=== PATIENT | female | born 1995 | race Caucasian/White ===

== ENCOUNTER 2017-09-22 19:33 | Inpatient (IN) | payer OTHER, SELFPAY ==
[2017-09-22 19:55] LABS: Bilirubin Negative (Negative); Blood, Urine Small (Negative); Clarity CLOUDY (Clear); Glucose, Urine (Dipstick) Negative (Negative); Leukocyte Moderate (Negative); Nitrite Negative (Negative); Protein, Urine (Dipstick) 30 mg/dL (Neg-Trace); Specific Gravity, Urine 1.022 (1.002-1.036)
[2017-09-22 19:57] LABS: Bacteria/HPF 1+ HPF (None Seen); Hyaline Casts/LPF 0-3 HYALINE CAST LPF (0-3 Hyaline); WBC/HPF 21-50 HPF (0-3)
[2017-09-22 19:58] LABS: Pregnancy Test - Urine (BHCG) Negative (Negative); Pregu Control Background? CLEAR/WHITE (CLR/WHITE); Pregu Control Bar Appear? YES (CONTROL BAR); Specific Gravity 1.022 (1.002-1.036)
[2017-09-22] MEDS ORDERED: Ondansetron HCl/PF 4 MG/2 ML Vial ONE (20:07)
[2017-09-22] MEDS ORDERED: Ketorolac Tromethamine 30 MG/ML VIAL ONE (20:07)
[2017-09-22 20:12] LABS: #Lymphocytes 2.4 thou/uL (1.20-3.40); #Monocytes 1.2 thou/uL (0.11-0.59); #Neutrophils 9.1 thou/uL (1.40-6.50); %Basophils 0.3 % (0.0-1.0); %Eosinophils 0.1 % (0.0-10.0); %Lymphocytes 18.6 % (21.0-51.0); %Monocytes 9.3 % (0.0-10.0); %Neutrophils 71.6 % (42.0-75.0); Hemoglobin 12.8 g/dL (12.0-16.0); Mean Corpuscular HGB CONC 34.8 g/dL (32.0-36.0); Mean Corpuscular Hemoglobin 32.3 pg (27.0-31.0); Mean Corpuscular Volume 92.9 fl (81.0-99.0); Mean Platelet Volume 6.3 fL (7.4-10.4); Platelet Count 251 thou/uL (130-400); RBC Distribution Width 10.3 % (11.5-14.5); Red Blood Cell (RBC) Count 3.97 mill/uL (4.20-5.40); White Blood Cell (WBC) Count 12.7 thou/uL (4.8-10.8)
[2017-09-22 20:33] LABS: Anion Gap 9 mmol/L (10-20); BUN (Urea Nitrogen) 11 mg/dL (7.0-18.7); Calc. Creatinine Clearance 0 mL/min (70-130); Calcium 9.5 mg/dL (7.8-10.44); Carbon Dioxide 28 mmol/L (22-29); Chloride 102 mmol/L (98-107); Estimated GFR-MDRD 90; Glucose 95 mg/dL (70-105); Potassium 3.7 mmol/L (3.5-5.1); Sodium 135 mmol/L (136-145)
--- NOTE | 2017-09-22 22:45 | PDOC.FPRHP ---
- History of Present Illness Chief Complaint: nausea, - History PMHx: PSHx: FHx: Social: - Vital signs BP: 118/68 HR: 89 RR: [14] Tmax: [98.2] Pox: [99]% on [RA] Wt: [77 kg] FMR H&P: Results - Labs Result Diagrams: 09/22/17 20:06 09/22/17 20:06 Lab results: WBC 12.7 thou/uL (4.8-10.8) H 09/22/17 20:06 Hgb 12.8 g/dL (12.0-16.0) 09/22/17 20:06 Hct 36.9 % (36.0-47.0) 09/22/17 20:06 MCV 92.9 fl (81.0-99.0) 09/22/17 20:06 Plt Count 251 thou/uL (130-400) 09/22/17 20:06 Neutrophils % 71.6 % (42.0-75.0) 09/22/17 20:06 Sodium 135 mmol/L (136-145) L 09/22/17 20:06 Potassium 3.7 mmol/L (3.5-5.1) 09/22/17 20:06 Chloride 102 mmol/L (98-107) 09/22/17 20:06 Carbon Dioxide 28 mmol/L (22-29) 09/22/17 20:06 BUN 11 mg/dL (7.0-18.7) 09/22/17 20:06 Creatinine 0.80 mg/dL (0.6-1.1) 09/22/17 20:06 Glucose 95 mg/dL (70-105) 09/22/17 20:06 Lactic Acid 0.8 mmol/L (0.5-2.2) 09/22/17 20:07 Calcium 9.5 mg/dL (7.8-10.44) 09/22/17 20:06 Urine Ketones Trace mg/dL (Negative) H 09/22/17 19:48 Urine Blood Small (Negative) H 09/22/17 19:48 Urine Nitrite Negative (Negative) 09/22/17 19:48 Ur Leukocyte Esterase Moderate (Negative) H 09/22/17 19:48 Urine RBC 7-10 HPF (0-3) H 09/22/17 19:48 Urine WBC 21-50 HPF (0-3) H 09/22/17 19:48 Ur Squamous Epith Cells 7-10 HPF (0-3) H 09/22/17 19:48 Urine Bacteria 1+ HPF (None Seen) H 09/22/17 19:48 FMR H&P: Upper Level - Plan Date/Time: 09/22/17 4844 I, [], have evaluated this patient and agree with findings/plan as outlined by wireless internet installer resident. Pertinent changes/additions are listed here.
--- NOTE | 2017-09-22 23:21 | PDOC.FPRHP ---
- History of Present Illness Chief Complaint: n/v, UTI symptoms History of Present Illness: This is very pleasant 22 yo F w/no significant PMH who presents to the ED tonight with 2-3 week hx of UTI symptoms--frequency, burning. Denies hx of previous UTIs, renal stones. 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 Reports she went to the [facility] yesterday and was diagnosed with a UTI and sent home with a course of macrobid. Today, she has been unable to tolerate PO even after taking zofran at home. She has taken 2 doses of the abx with no improvement. Reports fevers starting today Tmax 103, flank pain, feeling dehydrated. [place] and is afraid of worsening dehydration and symptomatic treatments given in the ER subsiding after she goes home. ED Course: In ED given 2 L NS, morphine, toradol, rocephin, zofran IV - Allergies/Adverse Reactions Allergies Allergy/AdvReac Type Severity Reaction Status Date / Time No Known Drug Allergies Allergy Verified 09/23/17 05:55 - Home Medications Comments: none - History PMHx: none PSHx: tubal ligation 1 mo ago FHx: none pertinent Social: Denies tobacco, drugs. Endorses social alcohol consumption. 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 - Review of Systems General: reports: fever/chills, weight/appetite/sleep changes, fatigue Eyes: denies: eye pain, vision changes ENT: denies: nasal congestion Respiratory: denies: cough, congestion Cardiovascular: denies: chest pain, palpitation Gastrointestinal: reports: nausea, vomiting Skin: denies: rashes, jaundice Musculoskeletal: reports: pain (b/l flank pain R>L) Neurological: denies: numbness, syncope Psychological: denies: anxiety, depression - Vital signs BP: [118/68] HR: [89] RR: [14] Tmax: [98.2] Pox: [99]% on [RA] Wt: [77 kg] - Physical Exam Constitutional: NAD, awake, alert and oriented -Constitutional: diaphoretic HEENT: normocephalic and atraumatic, PERRLA, EOMI, conjunctiva clear, MMM, oropharynx clear Neck: supple, no LAD, no thyromegaly Chest: no-tender to palpation Heart: RRR, normal S1/S2, no murmurs/rubs/gallops, no edema Lungs: CTAB, no respiratory distress, good air movement, no rales/rhonchi, no wheezing Abdomen: soft, non-tender -Abdomen: CVA tenderness R>L Musculoskeletal: normal structure, normal tone, ROM grossly normal Neurological: no focal deficit Skin: no rash/lesions, no jaundice Heme/Lymphatic: no unusual bruising or bleeding Psychiatric: normal mood and affect, good judgment and insight, intact recent and remote memory FMR H&P: Results - Labs Result Diagrams: 09/22/17 20:06 09/23/17 05:41 Lab results: WBC 12.7 thou/uL (4.8-10.8) H 09/22/17 20:06 Hgb 12.8 g/dL (12.0-16.0) 09/22/17 20:06 Hct 36.9 % (36.0-47.0) 09/22/17 20:06 MCV 92.9 fl (81.0-99.0) 09/22/17 20:06 Plt Count 251 thou/uL (130-400) 09/22/17 20:06 Neutrophils % 71.6 % (42.0-75.0) 09/22/17 20:06 Sodium 135 mmol/L (136-145) L 09/22/17 20:06 Potassium 3.7 mmol/L (3.5-5.1) 09/22/17 20:06 Chloride 102 mmol/L (98-107) 09/22/17 20:06 Carbon Dioxide 28 mmol/L (22-29) 09/22/17 20:06 BUN 11 mg/dL (7.0-18.7) 09/22/17 20:06 Creatinine 0.80 mg/dL (0.6-1.1) 09/22/17 20:06 Glucose 95 mg/dL (70-105) 09/22/17 20:06 Lactic Acid 0.8 mmol/L (0.5-2.2) 09/22/17 20:07 Calcium 9.5 mg/dL (7.8-10.44) 09/22/17 20:06 Urine Ketones Trace mg/dL (Negative) H 09/22/17 19:48 Urine Blood Small (Negative) H 09/22/17 19:48 Urine Nitrite Negative (Negative) 09/22/17 19:48 Ur Leukocyte Esterase Moderate (Negative) H 09/22/17 19:48 Urine RBC 7-10 HPF (0-3) H 09/22/17 19:48 Urine WBC 21-50 HPF (0-3) H 09/22/17 19:48 Ur Squamous Epith Cells 7-10 HPF (0-3) H 09/22/17 19:48 Urine Bacteria 1+ HPF (None Seen) H 09/22/17 19:48 Additional comment: Laboratory Tests 09/22/17 09/22/17 19:48 20:07 Lactic Acid 0.8 Urine Test Negative FMR H&P: A/P - Problem List (1) Pyelonephritis Current Visit: Yes Status: Acute Priority: High Code(s): N12 - TUBULO- INTERSTITIAL NEPHRITIS, NOT SPCF ACUTE OR CHRONIC (2) Gastrointestinal intolerance to foods Current Visit: Yes Status: Acute Code(s): K90.49 - MALABSORPTION DUE TO INTOLERANCE, NOT ELSEWHERE CLASSIFIED Assessment and Plan: Admission 2/2 to intolerance of PO - Plan Goals of pain control, nausea control for tonight. Given appropriate abx, will continue rocephin. If patient is still in severe pain, consider CT stone protocol in AM, less likely given b/l flank pain, little RBCs in UA, good renal function. Likely dispo 2 days for pain control, see if tolerating PO. FMR H&P: Upper Level - Plan Date/Time: 09/22/17 1930 I, [], have evaluated this patient and agree with findings/plan as outlined by internet sales director resident. Pertinent changes/additions are listed here. Attending Addendum - Attending Addendum Date/Time: 09/23/17 6298 I personally evaluated the patient and discussed the management with Dr. Coates. I agree with the History, Examination, Assessment and Plan documented above with any addition or exceptions noted below. The patient presents with a few days of dysuria and increasing flank pain. Patient worsened on macrobid. Now on IV antibiotics. Will get CT stone protocol to further evaluate flank pain. Patient will continue iv fluids and continue meds for pain control. She is complaining of a headache this morning. Toradol will be given.
[2017-09-22] MEDS ORDERED: Ondansetron ODT 4 MG TAB PO PRN (23:49)
[2017-09-22] MEDS ORDERED: Acetaminophen 325 MG TAB PO PRN (23:49)
[2017-09-22] MEDS ORDERED: Calcium Carbonate 500 MG ChewTAB PO PRN (23:49)
[2017-09-22] MEDS ORDERED: Ondansetron HCl/PF 4 MG/2 ML Vial IVP PRN (23:49)
[2017-09-22] MEDS ORDERED: Mag-Al 1200 mg/1200 mg/30 ML UDCUP PO PRN (23:49)
[2017-09-23] MEDS ORDERED: Morphine 5 MG/ML SYRINGE SLOW IVP PRN ×2 (00:01)
[2017-09-23 00:47] VITALS: BMI 26.6
[2017-09-23] MEDS: Sodium Chloride 0.9% 1,000 ML IV SCH ×2 (00:57→06:33)
[2017-09-23 06:10] LABS: Anion Gap 8 mmol/L (10-20); BUN (Urea Nitrogen) 9 mg/dL (7.0-18.7); Calc. Creatinine Clearance 158 mL/min (70-130); Calcium 8.5 mg/dL (7.8-10.44); Carbon Dioxide 25 mmol/L (22-29); Chloride 111 mmol/L (98-107); Estimated GFR-MDRD Greater than 90; Glucose 94 mg/dL (70-105); Sodium 140 mmol/L (136-145)
[2017-09-23] MEDS ORDERED: Ketorolac Tromethamine 30 MG/ML VIAL IVP SCH (08:30)
[2017-09-23 11:08] LABS: Pregnancy Test - Urine (BHCG) Negative (Negative); Pregu Control Background? CLEAR/WHITE (CLR/WHITE); Pregu Control Bar Appear? YES (CONTROL BAR); Specific Gravity 1.012 (1.002-1.036)
[2017-09-23] MEDS: Lactated Ringer's 1,000 ML IV SCH ×2 (11:59→19:30)
--- NOTE | 2017-09-23 13:17 | CT ---
CT ABDOMEN AND PELVIS: Date: 09/23/17 COMPARISON: None. HISTORY: Urinary tract infection, fever. TECHNIQUE: Serial axial CT imaging obtained at 5 mm intervals from lung bases through pubic symphysis without co ntrast. Coronal reformatted imaging obtained. FINDINGS: Imaged lung bases are unremarkable. Lack of contrast limits assessment of the viscera, bowel vasculat ure structures, and for lymphadenopathy. No free intraperitoneal air is noted. Liver, gallbladder, and spleen appear grossly unremarkable. Pancreas and bilateral adrenal glands are unremarkable. No left-sided hydronephrosis or nephrolithiasis. There is no evidence for obstructive uropathy on the left. There is no hydronephrosis or hydroureter on the right. No right nephrolithiasis. There is stranding of the fat within the hilar region on the right, mild. There is trace free fluid in the pelvic cul-de-sac on the right. There is a questionable cyst in the region of the right ovary measuring in the 2.0 cm range, not well characterized on this exam. Postoperative clips are noted in the adnexal regions. Appendix appears grossly unremarkable. No acute osseous abnormality. IMPRESSION: There is mild stranding of the fat in the right perinephric region near the renal pelvis. This could be on the basis of inflammatory/infectious change associated with pyelonephritis. There is no evidenc e for nephrolithiasis or obstructive uropathy. POS: SUMANTH
[2017-09-23] MEDS: Ketorolac Tromethamine 30 MG/ML VIAL IVP PRN (14:58)
[2017-09-23 19:08] LABS: Troponin I Less than 0.010 ng/mL (< 0.028)
[2017-09-23] MEDS ORDERED: cefTRIAXone\\ROCEPHIN 2 GM in Sodium Chloride 0.9% 100 ML IVPB SCH (21:00)
[2017-09-24] MEDS: Ketorolac Tromethamine 30 MG/ML VIAL IVP PRN (03:45)
[2017-09-24] MEDS: Lactated Ringer's 1,000 ML IV SCH (03:46)
[2017-09-24 06:59] LABS: #Eosinphils 0.3 thou/uL (0.0-0.7); #Lymphocytes 2.3 thou/uL (1.20-3.40); #Monocytes 0.7 thou/uL (0.11-0.59); #Neutrophils 4.1 thou/uL (1.40-6.50); %Basophils 0.4 % (0.0-1.0); %Eosinophils 3.4 % (0.0-10.0); %Lymphocytes 30.9 % (21.0-51.0); %Monocytes 9.5 % (0.0-10.0); %Neutrophils 55.7 % (42.0-75.0); Hemoglobin 10.7 g/dL (12.0-16.0); Mean Corpuscular HGB CONC 34.1 g/dL (32.0-36.0); Mean Corpuscular Hemoglobin 32.5 pg (27.0-31.0); Mean Corpuscular Volume 95.3 fl (81.0-99.0); Mean Platelet Volume 6.8 fL (7.4-10.4); Platelet Count 199 thou/uL (130-400); RBC Distribution Width 10.2 % (11.5-14.5); Red Blood Cell (RBC) Count 3.28 mill/uL (4.20-5.40); White Blood Cell (WBC) Count 7.4 thou/uL (4.8-10.8)
[2017-09-24 07:09] LABS: Anion Gap 8 mmol/L (10-20); BUN (Urea Nitrogen) 7 mg/dL (7.0-18.7); Calc. Creatinine Clearance 165 mL/min (70-130); Calcium 8.8 mg/dL (7.8-10.44); Carbon Dioxide 27 mmol/L (22-29); Chloride 108 mmol/L (98-107); Estimated GFR-MDRD Greater than 90; Glucose 91 mg/dL (70-105); Potassium 4.1 mmol/L (3.5-5.1); Sodium 139 mmol/L (136-145)
--- NOTE | 2017-09-24 07:52 | PDOC.FM ---
- Subjective Subjective: TIKA overnight, symptoms improved this AM. Able to tolerate PO yesterday w/o emesis. No new complaints. - Objective MAR Reviewed: Yes Vital Signs & Weight: Vital Signs (12 hours) Temp Pulse Resp BP Pulse Ox 09/24/17 03:52 98.1 F 77 18 109/60 100 09/23/17 23:46 98.1 F 70 18 99/55 L 100 Weight Weight 77.111 kg I&O: 09/23/17 09/24/17 09/25/17 06:59 06:59 06:59 Intake Total 1220 4922 Output Total 375 Balance 845 4922 Result Diagrams: 09/24/17 06:49 09/24/17 06:49 <Trae Whitehead - Last Filed: 09/24/17 07:49> - Objective Vital Signs & Weight: Vital Signs (12 hours) Temp Pulse Resp BP Pulse Ox 09/24/17 08:30 97.7 F 66 16 106/63 100 09/24/17 03:52 98.1 F 77 18 109/60 100 Weight Weight 77.111 kg I&O: 09/23/17 09/24/17 09/25/17 06:59 06:59 06:59 Intake Total 1220 4922 Output Total 375 Balance 845 4922 Result Diagrams: 09/24/17 06:49 09/24/17 06:49 <Cari Cordero - Last Filed: 09/24/17 14:16> Phys Exam - Physical Examination Constitutional: NAD HEENT: PERRLA, moist MMs Neck: no nodes Respiratory: no wheezing Cardiovascular: RRR, no significant murmur Gastrointestinal: soft, positive bowel sounds mild suprapubic tenderness improved from yesteday's exam Neurological: moves all 4 limbs Psychiatric: normal affect, A&O x 3 Skin: no rash <Trae Whitehead - Last Filed: 09/24/17 07:49> Dx/Plan (1) Pyelonephritis Code(s): N12 - TUBULO-INTERSTITIAL NEPHRITIS, NOT SPCF ACUTE OR CHRONIC Status: Acute Plan: Improvement in WBC and sxs on IV rocephin Cont. w/ transition to PO pending sensitivities (2) Gastrointestinal intolerance to foods Code(s): K90.49 - MALABSORPTION DUE TO INTOLERANCE, NOT ELSEWHERE CLASSIFIED Status: Acute Plan: Tolerating PO yesterday Cont. w/ PRN zofran <Trae Whitehead - Last Filed: 09/24/17 07:49> (1) Pyelonephritis Code(s): N12 - TUBULO-INTERSTITIAL NEPHRITIS, NOT SPCF ACUTE OR CHRONIC Status: Acute (2) Gastrointestinal intolerance to foods Code(s): K90.49 - MALABSORPTION DUE TO INTOLERANCE, NOT ELSEWHERE CLASSIFIED Status: Acute <Cari Cordero - Last Filed: 09/24/17 14:16> Attending Addendum - Attending Addendum Date/Time: 09/24/17 6493 I personally evaluated the patient and discussed the management with Dr. Whitehead. I agree with the History, Examination, Assessment and Plan documented above with any addition or exceptions noted below. The patient's pain has resolved. She is tolerating po intake. VQ scan negative , cardiac enzymes normal. Will d/c on po antibiotics. <Cari Cordero - Last Filed: 09/24/17 14:16>
[2017-09-24 08:36] VITALS: BP 106/63; TEMP 97.7
--- NOTE | 2017-09-24 10:51 | DIS-2 ---
DATE OF ADMISSION: 09/23/2017 DATE OF DISCHARGE: 09/24/2017 ADMITTING ATTENDING: Dr. Cordero. DISCHARGE ATTENDING: Dr. Cordero. RESIDENT: Trae Whitehead M.D. CONSULTATIONS: None. PROCEDURES: None. IMAGING: CT abdomen and pelvis stone protocol showing mild fat stranding in the right perinephric re gion and a 2.0 cm possible cyst in the right ovary. No evidence of nephrolithiasis. PRIMARY DIAGNOSES: 1. Acute right-sided pyelonephritis. 2. Intractable nausea and vomiting. SECONDARY DIAGNOSES: None. DISCHARGE MEDICATIONS: 1. Ciprofloxacin 500 mg p.o. q.12 hours for 7 days. 2. Zofran 4 mg sublingual tablets q.6 hours as needed for nausea, vomiting. DISCONTINUED MEDICATIONS: None. HISTORY OF PRESENT ILLNESS AND HOSPITAL COURSE: The patient is a 22-year-old female who initially pr esented to the ER for evaluation of intractable nausea and vomiting over a 24-hour period as well as dysuria over the past 2-3 weeks with frequency as well. No history of prior UTIs or renal stones. T he patient reportedly went to [facility] where she was prescribed Macrobid. She took 2 doses of this and did not have any improvement of her symptoms prompting ER visit at [facility] on 09/22/2017. The patient in the ER was given 2 liters normal saline, morphine, Toradol, and Zofr an which did not improve her p.o. tolerance. She was admitted for acute pyelonephritis in the settin g of CVA tenderness and UA indicative of infection as well as intractable nausea and vomiting. The p atient continued on IV Rocephin and urine culture is growing out less than 10,000 colony forming unit of urogenital ronen. Patient's white count improved from 12.7 with 71.6% neutrophils to 7.4 with 55 .7% neutrophils on day of discharge. The patient was afebrile throughout the entire hospital course. She as well did not meet any other criteria for possible sepsis. The patient tolerated past p.o. c hallenge and was transitioned over to p.o. ciprofloxacin. DISPOSITION: Stable. DISCHARGE INSTRUCTIONS: 1. Location: Home. 2. Follow up with primary care provider in 7 to 10 days. 3. Activity: As tolerated.
--- NOTE | 2017-09-27 16:44 | EKG ---
Test Reason : Blood Pressure : / mmHG Vent. Rate : 066 BPM Atrial Rate : 066 BPM P-R Int : 142 ms QRS Dur : 100 ms QT Int : 410 ms P-R-T Axes : 024 067 043 degrees QTc Int : 429 ms Normal sinus rhythm RSR' or QR pattern in V1 suggests right ventricular conduction delay Normal ECG Confirmed by TURNER GALVEZ ([id number]) on 09/27/2017 4:44:12 PM Referred By: KIESHA Confirmed By:TURNER GALVEZ
--- NOTE | 2017-10-14 12:09 | EKG ---
Test Reason : Blood Pressure : / mmHG Vent. Rate : 126 BPM Atrial Rate : 126 BPM P-R Int : 142 ms QRS Dur : 094 ms QT Int : 310 ms P-R-T Axes : 057 073 -32 degrees QTc Int : 448 ms Sinus tachycardia Abnormal ECG Confirmed by ARTEMIO TAFOYA, FATEMEH Bautista ([id number]), editor trade journal LATONIA SUGGS ([id number] on 10/14/2017 12:08:51 PM Referred By: Confirmed By:FATEMEH ULLOA MD
== END 2017-09-24 10:33 | disposition home or self-care (01) | DRG 690 ==
LOC: ERS 19:33 → 3SE 23:44
PROVIDERS: ADMIT Family Medicine; ATTEND Family Medicine
DX: N10 Acute pyelonephritis (principal); R11.2 Nausea with vomiting, unspecified; R51 Headache; Z98.51 Tubal ligation status
CPT/HCPCS: 36415; 74176; 80048; 81003; 81015; 81025; 82550; 83605; 84484; 85025; 85379; 87040; 87086; 93005; 93010; 96361; 96374; 96375; 96376; J2270; A4216; J0696; J1885; J2405; J7050

== ENCOUNTER 2022-04-22 11:37 | Outpatient (CLI) | payer OTHER | END 2022-04-22 11:38 | disposition home or self-care (01) | LOC: BICRAD 11:37 | PROVIDERS: ATTEND Family Medicine | DX: M25.552 Pain in left hip (principal) ==

== ENCOUNTER 2023-02-10 12:00 | Emergency (ER) | payer OTHER ==
[~2023-02-10 12:00] MED LIST: Iopamidol-370 76% 500 ML MDV (1 ML CHARGE) ONE
[2023-02-10 12:38] LABS: #Eosinphils 0.1 thou/uL (0.0-0.7); #Monocytes 0.5 thou/uL (0.11-0.59); #Neutrophils 3.6 thou/uL (1.40-6.50); %Basophils 0.6 % (0.0-1.0); %Eosinophils 1.3 % (0.0-10.0); %Lymphocytes 22.5 % (21.0-51.0); %Monocytes 8.6 % (0.0-10.0); %Neutrophils 66.8 % (42.0-75.0); Hemoglobin 13.1 g/dL (12.0-16.0); Mean Corpuscular HGB CONC 34.7 g/dL (32.0-36.0); Mean Corpuscular Hemoglobin 31.6 pg (27.0-31.0); Mean Corpuscular Volume 91.1 fl (78.0-98.0); Mean Platelet Volume 9.2 fL (7.4-10.4); Platelet Count 223 10x3/uL (130-400); RBC Distribution Width 10.9 % (11.5-14.5); Red Blood Cell (RBC) Count 4.15 mill/uL (4.20-5.40); White Blood Cell (WBC) Count 5.3 10x3/uL (4.8-10.8)
[2023-02-10] MEDS ORDERED: HYDROcodone/Acetaminophen 5/325 mg Tablet ONE (13:02)
[2023-02-10 13:09] LABS: ALT (SGPT) 13 U/L (8-55); AST (SGOT) 18 U/L (5-34); Albumin 4.7 g/dL (3.5-5.0); Alkaline Phosphatase 98 U/L (40-110); Anion Gap 14 mmol/L (10-20); BUN (Urea Nitrogen) 8 mg/dL (7.0-18.7); Bilirubin, Total 0.4 mg/dL (0.2-1.2); Calc. Creatinine Clearance 0 mL/min (70-130); Carbon Dioxide 23 mmol/L (22-29); Chloride 105 mmol/L (98-107); Estimated GFR 101; Globulin 3.2 g/dL (2.4-3.5); Glucose 82 mg/dL (70-105); Lipase 8 U/L (8-78); Potassium 4.3 mmol/L (3.5-5.1); Protein, Total 7.9 g/dL (6.0-8.3); Sodium 138 mmol/L (136-145)
[2023-02-10 14:09] LABS: Pregnancy Test - Urine (BHCG) Negative (Negative); Pregu Control Background? CLEAR/WHITE (CLR/WHITE); Pregu Control Bar Appear? YES (CONTROL BAR)
[2023-02-10 14:10] LABS: Bacteria/HPF None Seen HPF (None Seen); Bilirubin Negative (Negative); Blood, Urine Negative (Negative); CAUTI Indications for Culture Pelvic or flank pain; Clarity Clear (Clear); Glucose, Urine (Dipstick) Normal (Negative); Ketone, Urine Negative (Negative); Leukocyte Negative Leu/uL (Negative); Nitrite Negative (Negative); Protein, Urine (Dipstick) Negative (Neg-Trace); RBC/HPF 0-3 HPF (0-3); Specific Gravity 1.007 (1.002-1.036); Specific Gravity, Urine 1.007 (1.002-1.036); Squamous Epithelial None Seen HPF (0-3); Urobilinogen Normal mg/dL (Less than 2); WBC/HPF 0-3 HPF (0-3); pH, Urine 5.5 (5.0-9.0)
[2023-02-10 14:11] LABS: Urine Culture Reflex No No
== END 2023-02-10 15:44 | disposition home or self-care (01) ==
LOC: ERS 12:00
DX: M54.50 Low back pain, unspecified (principal)
CPT/HCPCS: 36415; 72131; 74177; 80053; 81001; 81025; 83690; 85025; 85652; 86140; Q9967